=== PATIENT | male | born 1945 | race Caucasian/White ===

== ENCOUNTER 2017-01-09 11:46 | Day surgery (SDC) | payer OTHER, MEDICARE ==
[~2017-01-09 11:46] MED LIST: Lactated Ringers 1,000 ML IV SCH; Sodium Chloride 0.9% 10 ML Syringe FLUSH PRN
[2017-01-09] MEDS ORDERED: Propofol 200 MG/20 ML SDV ONE ×3 (12:44→13:46)
--- NOTE | 2017-01-09 12:45 | PCM.HPR ---
H & P Addendum review - H & P Addendum Review Date of Original H & P: 01/03/17 Date Reviewed: 01/09/17 Time Reviewed: 12:44 Patient was examined: No Changes Please note any Changes: ok to proceed with colonoscopy
--- NOTE | 2017-01-09 13:43 | PCM.OPNOTE ---
- General Post-Op/Procedure Note Date of Surgery/Procedure: 01/09/17 Operative Procedure(s): Colonoscopy Findings: Normal Pre Op Diagnosis: Hx Colon polyps Post-Op Diagnosis: Same Anesthesia Technique: MAC Primary Surgeon: Claude Be Complications: None Condition: Good Free Text/Narrative:: Intake & Output 01/08/17 01/09/17 01/09/17 22:59 06:59 14:59 Intake Total 700 Balance 700
--- NOTE | 2017-01-09 14:30 | OR ---
Date of Procedure: 01/09/2017 PREOPERATIVE DIAGNOSIS: History of colon polyps. POSTOPERATIVE DIAGNOSIS: Normal colonoscopy. PROCEDURE: Colonoscopy. ANESTHESIA: IV sedation. DESCRIPTION OF PROCEDURE: The patient was brought to the procedure room and he was placed on the left side and IV sedation administered. Digital rectal exam was performed, which was normal. Colonoscope was inserted and advanced to the level of the cecum with significant difficulty getting around the hepatic flexure, requiring pressure on the abdomen and changing to the supine position. I was able to reach the cecum, which was confirmed by identifying the appendiceal lumen and ileocecal valve. The cecum does take an extra fold towards the midline. Upon withdrawing the scope, the ascending, transverse, and descending colon were normal in appearance. Sigmoid colon and rectum were normal. Retroflexion was normal. Air was removed and the scope withdrawn. The patient tolerated the procedure well and returned to recovery in stable condition. Recommend routine colon screening in 5 years. LAURA HANCOCK MD /[id number]
[2017-01-09 18:44] VITALS: BP 96/75
== END 2017-01-09 15:15 | disposition home or self-care (01) ==
LOC: LL.SDS 11:46
PROVIDERS: ATTEND Surgery
DX: Z12.11 Encounter for screening for malignant neoplasm of colon (principal); D64.9 Anemia, unspecified; E78.5 Hyperlipidemia, unspecified; N40.1 Benign prostatic hyperplasia with lower urinary tract symptoms; Z98.890 Other specified postprocedural states; Z95.2 Presence of prosthetic heart valve; Z79.01 Long term (current) use of anticoagulants; Z79.899 Other long term (current) drug therapy; Z87.891 Personal history of nicotine dependence
CPT/HCPCS: 45378; J2704; J7120

== ENCOUNTER 2023-01-30 10:01 | Day surgery (SDC) | payer OTHER, MEDICARE ==
[~2023-01-30 10:01] MED LIST changes: -Lactated Ringers 1,000 ML IV SCH; +Midazolam 1 MG/ML 2 ML SDV ONE; +Propofol 200 MG/20 ML SDV ONE; -Sodium Chloride 0.9% 10 ML Syringe FLUSH PRN
[2023-01-30] MEDS: Lactated Ringers 1,000 ML IV SCH (10:22)
[2023-01-30] MEDS ORDERED: Sodium Chloride 0.9% 10 ML Syringe FLUSH PRN (11:15)
[2023-01-30 11:37] VITALS: PULSE 54
[2023-01-30 11:54] VITALS: BP 148/81
== END 2023-01-30 13:15 | disposition home or self-care (01) ==
LOC: LL.SDS 10:01
PROVIDERS: ATTEND Surgery
DX: Z12.11 Encounter for screening for malignant neoplasm of colon (principal); D12.6 Benign neoplasm of colon, unspecified; K57.30 Diverticulosis of large intestine without perforation or abscess without bleeding; K62.1 Rectal polyp; J44.9 Chronic obstructive pulmonary disease, unspecified; E78.2 Mixed hyperlipidemia; N18.30 Chronic kidney disease, stage 3 unspecified; E87.6 Hypokalemia; D50.9 Iron deficiency anemia, unspecified; I25.10 Atherosclerotic heart disease of native coronary artery without angina pectoris; Z87.891 Personal history of nicotine dependence; Z79.01 Long term (current) use of anticoagulants; Z86.010 Personal history of colon polyps; Z98.0 Intestinal bypass and anastomosis status; Z79.899 Other long term (current) drug therapy
CPT/HCPCS: 00813; J2250; J2704; J7120